=== PATIENT | female | born 1965 | race Caucasian/White ===

== ENCOUNTER → 2018-01-13 | Outpatient (CLI) | payer BC ==
--- NOTE | 2018-01-14 12:02 | MM ---
Reason for exam: screening (asymptomatic). Last mammogram was performed 1 year and 8 months ago. Physical Findings: A clinical breast exam by your physician is recommended on an annual basis and results should be correlated with mammographic findings. MG Screening Mammo w CAD Bilateral CC and MLO view(s) were taken. Prior study comparison: May 23, 2016, mammogram, performed at [place]. May 11, 2015, mammogram, performed at [place]. The breast tissue is heterogeneously dense. This may lower the sensitivity of mammography. No significant changes when compared with prior studies. ASSESSMENT: Benign, BI-RAD 2 RECOMMENDATION: Routine screening mammogram of both breasts in 1 year.
== END | disposition home or self-care (01) ==
LOC: RADMAMWWP 14:19
PROVIDERS: ATTEND Obstetrics & Gynecology Obstetrics
DX: Z12.31 Encounter for screening mammogram for malignant neoplasm of breast (principal)
CPT/HCPCS: 77067

== ENCOUNTER → 2019-02-10 | Outpatient (CLI) | payer BC ==
--- NOTE | 2019-02-11 08:43 | MM ---
Reason for exam: screening (asymptomatic). Last mammogram was performed 1 year and 1 month ago. History: Patient is postmenopausal. Physical Findings: A clinical breast exam by your physician is recommended on an annual basis and results should be correlated with mammographic findings. MG Screening Mammo w CAD Bilateral CC and MLO view(s) were taken. Prior study comparison: January 13, 2018, bilateral MG screening mammo w CAD. May 23, 2016, mammogram, performed at [place]. The breast tissue is heterogeneously dense. This may lower the sensitivity of mammography. No significant changes when compared with prior studies. ASSESSMENT: Negative, BI-RAD 1 RECOMMENDATION: Routine screening mammogram of both breasts in 1 year.
== END | disposition home or self-care (01) ==
LOC: RADMAMWWP 07:32
PROVIDERS: ATTEND Obstetrics & Gynecology Obstetrics
DX: Z12.31 Encounter for screening mammogram for malignant neoplasm of breast (principal)
CPT/HCPCS: 77067

== ENCOUNTER → 2021-08-15 | Outpatient (CLI) | payer OTHER ==
--- NOTE | 2021-08-17 11:28 | MM ---
Reason for exam: screening (asymptomatic). Last mammogram was performed 1 year and 4 months ago. History: Patient is postmenopausal. Physical Findings: A clinical breast exam by your physician is recommended on an annual basis and results should be correlated with mammographic findings. MG Screening Mammo w CAD Bilateral CC and MLO view(s) were taken. Prior study comparison: April 29, 2020, bilateral MG screening mammo w CAD. February 10, 2019, bilateral MG screening mammo w CAD. The breast tissue is heterogeneously dense. This may lower the sensitivity of mammography. No significant changes when compared with prior studies. ASSESSMENT: Negative, BI-RAD 1 RECOMMENDATION: Routine screening mammogram of both breasts in 1 year.
== END | disposition home or self-care (01) ==
LOC: RADMAMWWP 14:20
PROVIDERS: ATTEND Obstetrics & Gynecology Obstetrics
DX: Z12.31 Encounter for screening mammogram for malignant neoplasm of breast (principal)
CPT/HCPCS: 77067

== ENCOUNTER → 2022-08-16 | Outpatient (CLI) | payer OTHER ==
--- NOTE | 2022-08-17 07:40 | MM ---
Reason for Exam: Screening (asymptomatic). Last screening mammogram was performed 12 month(s) ago. Patient History: Menarche at age 10. First Full-Term at age 21. Postmenopausal. Risk Values: Nancy 5 year model risk: 1.2%. NCI Lifetime model risk: 6.9%. Prior Study Comparison: 02/10/2019 Bilateral Screening Mammogram, [facility]. 04/29/2020 Bilateral Screening Mammogram, [facility]. 08/15/2021 Bilateral Screening Mammogram, [facility]. Tissue Density: The breast tissue is heterogeneously dense. This may lower the sensitivity of mammography. Findings: Analyzed By CAD. There is no suspicious group of microcalcifications or new suspicious mass in either breast. Overall Assessment: Negative, BI-RAD 1 Management: Screening Mammogram of both breasts in 1 year. A clinical breast exam by your physician is recommended on an annual basis and results should be correlated with mammographic findings. Electronically signed and approved by: Tavo Vu M.D. Radiologis
== END | disposition home or self-care (01) ==
LOC: RADMAMWWP 13:42
PROVIDERS: ATTEND Obstetrics & Gynecology Obstetrics
DX: Z12.31 Encounter for screening mammogram for malignant neoplasm of breast (principal)
CPT/HCPCS: 77067

== ENCOUNTER → 2023-08-19 | Outpatient (CLI) | payer OTHER ==
--- NOTE | 2023-08-20 09:00 | MM ---
Reason for Exam: Screening (asymptomatic). Last screening mammogram was performed 12 month(s) ago. Patient History: Menarche at age 10. First Full-Term at age 21. Postmenopausal. Risk Values: Nancy 5 year model risk: 1.2%. NCI Lifetime model risk: 6.7%. Prior Study Comparison: 04/29/2020 Bilateral Screening Mammogram, [facility]. 08/15/2021 Bilateral Screening Mammogram, [facility]. 08/16/2022 Bilateral MG screening mammo w CAD, [facility]. Tissue Density: The breast tissue is heterogeneously dense. This may lower the sensitivity of mammography. Findings: Analyzed By CAD. There is no suspicious group of microcalcifications or new suspicious mass in either breast. Overall Assessment: Negative, BI-RAD 1 Management: Screening Mammogram of both breasts in 1 year. . Patient should continue monthly self-breast exams. A clinical breast exam by your physician is recommended on an annual basis. This exam should not preclude additional follow-up of suspicious palpable abnormalities. Note on Nancy scores and lifetime risk: 1. A Nancy score greater than 3% is considered moderate risk. If this is the case, consider specialist referral to assess eligibility for a risk reducing agent. 2. If overall lifetime risk for the development of breast cancer is 20% or higher, the patient may qualify for future screening with alternating mammogram and breast MRI. Electronically signed and approved by: Tavo Vu M.D. Radiologis
== END | disposition home or self-care (01) ==
LOC: RADMAMWWP 13:45
PROVIDERS: ATTEND Obstetrics & Gynecology Obstetrics
DX: Z12.31 Encounter for screening mammogram for malignant neoplasm of breast (principal); Z78.0 Asymptomatic menopausal state
CPT/HCPCS: 77067

== ENCOUNTER → 2023-08-20 | Outpatient (CLI) | payer OTHER ==
--- NOTE | 2023-08-21 07:46 | US ---
EXAMINATION TYPE: US carotid duplex BILAT DATE OF EXAM: 08/20/2023 COMPARISON: NONE CLINICAL INDICATION: Female, 57 years old with history of G45.9 TRANSIENT CEREBRAL ISCHEMIC ATTACK, U NSPECIF; dizziness TECHNIQUE: Carotid duplex ultrasound examination. Indirect Doppler criteria was utilized. 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 No significant plaquing or stenosis based on velocities. Criteria for Assigning % of Stenosis / Diameter reduction (Estimation based on the indirect measurements of the internal carotid artery velocities (ICA PSV). 1. Normal (no stenosis)=ICA PSV < 125 cm/s: ratio < 2.0: ICA EDV<40 cm/s. 2. Less than 50% stenosis=ICA PSV < 125 cm/s: ratio < 2.0: ICA EDV<40 cm/s. 3. 50 to 69% stenosis=ICA PSV of 125 to 230 cm/s: ration 2.0 ? 4.0: ICA EDV 40-100 cm/s. 4. Greater than 70% stenosis to near occlusion= ICA PSV > 230 cm/s: ratio > 4.0: ICA EDV > 100 cm/s. 5. Near occlusion= ICA PSV velocities may be low or undetectable: variable ratio and ICA EDV. 6. Total occlusion=unable to detect flow.
--- NOTE | 2023-08-21 13:29 | CA ---
Transthoracic Echo Report Name: Billie Saez Age: 57 Gender: F : 1965 Exam Date: 08/20/2023 15:16 Exam Location: [facility] Ht (in): 61 Wt (lb): 116 Ordering Physician: Carlos Munguia MD Attending/Referring Phys: Fish Cake Maker Serina Kyle RDCS Procedure CPT: Indications: G45.9 TRANSIENT CEREBRAL ISCHEMIC ATTACK, UNSPECIF Cardiac Hx: Technical Quality: Fair Contrast 1: Total Dose (mL): Contrast 2: Total Dose (mL): MEASUREMENTS (Male / Female) Normal Values 2D ECHO LV Diastolic Diameter PLAX 3.8 cm 4.2 - 5.9 / 3.9 - 5.3 cm LV Systolic Diameter PLAX 2.8 cm IVS Diastolic Thickness 0.8 cm 0.6 - 1.0 / 0.6 - 0.9 cm LVPW Diastolic Thickness 1.0 cm 0.6 - 1.0 / 0.6 - 0.9 cm LV Relative Wall Thickness 0.5 RV Internal Dim ED PLAX 3.3 cm LA Volume 39.1 cm??? 18 - 58 / 22 - 52 cm??? LA Volume Index 25.9 cm???/m??? 16 - 28 cm???/m??? M-MODE Aortic Root Diameter MM 1.8 cm LA Systolic Diameter MM 2.7 cm LA Ao Ratio MM 1.5 AV Cusp Separation MM 1.6 cm DOPPLER AV Peak Velocity 145.5 cm/s AV Peak Gradient 8.5 mmHg AV Mean Velocity 106.3 cm/s AV Mean Gradient 5.0 mmHg AV Velocity Time Integral 31.9 cm LVOT Peak Velocity 155.1 cm/s LVOT Peak Gradient 9.6 mmHg LVOT Velocity Time Integral 31.0 cm MV Area PHT 4.8 cm??? Mitral E Point Velocity 100.6 cm/s Mitral A Point Velocity 82.7 cm/s Mitral E to A Ratio 1.2 MV Deceleration Time 157.9 ms MV E' Velocity 11.6 cm/s Mitral E to MV E' Ratio 8.7 TR Peak Velocity 241.3 cm/s TR Peak Gradient 23.3 mmHg Right Ventricular Systolic Press 26.7 mmHg FINDINGS Left Ventricle Normal Left ventricular size, wall thickness, systolic function with no obvious regional wall motion abnormalities. Normal Left ventricular diastolic filling pattern. Left ventricular ejection fraction is estimated at 55-60 %. Right Ventricle Normal right ventricular size and function. Right ventricular systolic pressure within normal limits. Right Atrium Normal right atrial size. Left Atrium Normal left atrial size. Mitral Valve Structurally normal mitral valve. Slight redundancy of the anterior mitral leaflet but no prolapse Mild mitral regurgitation. Aortic Valve Trileaflet aortic valve. No aortic valve stenosis or regurgitation. Tricuspid Valve Mild tricuspid regurgitation Pulmonic Valve Trace pulmonic regurgitation. Pericardium No pericardial effusion. Aorta Normal size aortic root and proximal ascending aorta. CONCLUSIONS Normal LV size and systolic function. Mild mitral and tricuspid regurgitation. No pericardial effusion. No pulmonary hypertension Previewed by: Dr. Sudha Singh MD (Electronically Signed) Final Date: 21 August 2023 13:28
== END | disposition home or self-care (01) ==
LOC: RADECHMAIN 15:11
PROVIDERS: ATTEND Family Medicine
DX: I08.1 Rheumatic disorders of both mitral and tricuspid valves (principal); G45.9 Transient cerebral ischemic attack, unspecified; R42 Dizziness and giddiness
CPT/HCPCS: 93306; 93880

== ENCOUNTER → 2024-08-20 | Outpatient (CLI) | payer OTHER ==
--- NOTE | 2024-08-24 12:11 | MM ---
Reason for Exam: Screening (asymptomatic). Last screening mammogram was performed 12 month(s) ago. Patient History: Menarche at age 10. First Full-Term at age 21. Postmenopausal. Patient has history of breast feeding. Risk Values: Nancy 5 year model risk: 1.3%. NCI Lifetime model risk: 6.6%. Prior Study Comparison: 08/15/2021 Bilateral Screening Mammogram, [facility]. 08/16/2022 Bilateral MG screening mammo w CAD, [facility]. 08/19/2023 Bilateral MG screening mammo w CAD, [facility]. Tissue Density: There are scattered areas of fibroglandular density. Findings: Analyzed By CAD. There is no suspicious group of microcalcifications or new suspicious mass in either breast. Overall Assessment: Negative, BI-RAD 1 Management: Screening Mammogram of both breasts in 1 year. . Patient should continue monthly self-breast exams. A clinical breast exam by your physician is recommended on an annual basis. This exam should not preclude additional follow-up of suspicious palpable abnormalities. Note on Nancy scores and lifetime risk: 1. A Nancy score greater than 3% is considered moderate risk. If this is the case, consider specialist referral to assess eligibility for a risk reducing agent. 2. If overall lifetime risk for the development of breast cancer is 20% or higher, the patient may qualify for future screening with alternating mammogram and breast MRI. [facility], , 08/24/2024 12:08 PM. Electronically signed and approved by: Tavo Vu M.D. Radiologis
== END | disposition home or self-care (01) ==
LOC: RADMAMWWP 14:00
PROVIDERS: ATTEND Obstetrics & Gynecology Obstetrics
DX: Z12.31 Encounter for screening mammogram for malignant neoplasm of breast (principal); Z78.0 Asymptomatic menopausal state; R92.323 Mammographic fibroglandular density, bilateral breasts
CPT/HCPCS: 77067

== ENCOUNTER → 2025-04-27 | Outpatient (CLI) | payer OTHER ==
--- NOTE | 2025-04-27 15:19 | CT ---
EXAMINATION TYPE: CT abdomen pelvis w con CT DLP: 767 mGycm, Automated exposure control for dose reduction was used. DATE OF EXAM: 04/27/2025 3:09 PM COMPARISON: None CLINICAL INDICATION:Female, 59 years old with history of R10.30 LOWER ABDOMINAL PAIN, UNSPECIFIED; lo wer abdominal pain TECHNIQUE: Standard CT of the abdomen and pelvis following the administration of 100 cc of Isovue 3 00 IV contrast material and oral contrast. Coronal and sagittal reformats were performed. FINDINGS: LOWER CHEST: Unremarkable ABDOMEN LIVER: Subcentimeter cyst within the inferior right hepatic lobe. GALLBLADDER AND BILE DUCTS: Gallbladder appears unremarkable. Intra and extrahepatic biliary duct dil atation with the common bile duct measuring up to 13 mm at the pancreatic head. There appears to be s mooth tapering into the ampulla. PANCREAS: Unremarkable. No pancreatic ductal dilatation. SPLEEN: Unremarkable. ADRENAL GLANDS: Unremarkable. KIDNEYS AND URETERS: No evidence of hydronephrosis or renal calculus. The kidneys enhance symmetrical ly. Retroaortic left renal vein. Contrast is demonstrated within both collecting systems and proximal ureters on the delayed phase. Right renal sinus cyst measuring up to 1.6 cm. No follow up recommende d. PELVIS BLADDER: Unremarkable REPRODUCTIVE: Unremarkable. ABDOMEN & PELVIS STOMACH AND BOWEL: Stomach and duodenum are unremarkable. The appendix is within normal limits. Enter ic contrast reaches the mid to distal small bowel. No focal bowel wall thickening or surrounding infl ammatory changes. No diverticulosis. No evidence of bowel obstruction. PERITONEUM: No evidence of pneumoperitoneum or free fluid. VASCULATURE: No evidence of aortic aneurysm. MUSCULOSKELETAL: No acute osseous abnormalities LYMPH NODES: No evidence for lymphadenopathy. SOFT TISSUE/ABDOMINAL WALL: Unremarkable IMPRESSION: Intra and extra hepatic biliary duct dilatation. Gallbladder appears unremarkable. Correlate with brittany iary levels with consideration for MRCP. [facility], , 04/27/2025 3:17 PM
== END | disposition home or self-care (01) ==
LOC: RADCTMAIN 13:19
PROVIDERS: ATTEND Internal Medicine
DX: K83.8 Other specified diseases of biliary tract (principal)
CPT/HCPCS: 74177; Q9967